=== PATIENT | female | born 1955 | race Caucasian/White ===

== ENCOUNTER 2020-03-11 09:00 | Outpatient (RCR) | payer MEDICARE, SELFPAY ==
--- NOTE | 2020-01-22 10:09 | PTOPEVAL ---
PHYSICAL THERAPY EVALUATION AND PLAN OF CARE Thank you for referring Dilma Ruiz to [facility]. I recommend Dilma participate in physical therapy 1-2x/week for 3-4 weeks. Please review, sign, date and return this plan of care LOLIS. I agree with and certify that the following plan of care is medically necessary. Referring Physician Date Evaluation Outpatient Past Medical History Neurological History Hx Multiple Sclerosis Yes Other History Hx Cancer Yes: colon cancer Evaluation Information Problem Diagnosis left hip trochanteric bursitis Onset 5 weeks ago Subjective Information Dilma is here today 5 weeks Query Text:As Reported By Patient/ after initial injury of left Family hip. While walking/running she experienced an pain in the left hip while on asphalt. She has been taking ibuprofen for a week, icing 3x/day, doing ITB stretches, pigeon pose, piriformis stretch. She reports the last several days have been better. She reports that she generally has tight ITB and has generally tight LE muscles because she has spasticity in LE. She has been trying to slow down her walking and avoiding running for now. Feels the best getting out of bed in the morning, but if sits too long during the day it will stiffen up. Pain Assessment Timing of Pain Assessment Timing of Pain Assessment Assessment Pain Scale Pain Scale Used Numeric (1 - 10) Self Report Pain Assessment Left Hip(s) Reported Pain Level 3 Pain Description Tightness Pain Frequency Acute,Intermittent Lowest Pain Intensity 3 Greatest Pain Intensity 7 Pain Aggravating Factors Stair Climbing,Walking Pain Score Pain Score 3: Self Report Lower Extremity Range of Motion General Lower Extremity Range of Motion Reason Not Measured WFL/Left,WFL/Right Lower Extremity Muscle Strength Testing Hip Strength Right Hip Flexion Strength 5 Normal Hip Extension Strength 4- Good - Hip Abduction Strength 5 Normal Left Hip Flexion Strength 5 Normal Hip Extension Strength 3+ Fair + Hip Abduction Strength 4- Good - Knee Strength Left Knee Flexion Strength
--- NOTE | 2020-03-11 09:25 | PTOPEVAL ---
PHYSICAL THERAPY DISCHARGE NOTE Thank you for referring Dilma Ruiz to [facility]. Please review, sign, date and return this plan of care LOLIS. I agree with and certify that the following plan of care is medically necessary. Referring Physician Date Discharge Diagnosis left hip trochanteric bursitis Onset 5 weeks ago Subjective Information Dilma is participating in physical therapy for left hip pain. She reports no episodes of pain in the last two weeks. Continues with HEP. Pain Score 0: Self Report General Lower Extremity Range of Motion: WFL/Left,WFL/Right Hip Strength Right Hip Flexion Strength 5 Normal Hip Extension Strength 4+ Good + Hip Abduction Strength 5 Normal Left Hip Flexion Strength 5 Normal Hip Extension Strength 4+ Good + Hip Abduction Strength 5 Normal Knee Strength Left Knee Flexion Strength 5 Normal Knee Extension Strength 5 Normal Knee Strength Comments SLS [id number] each side without LOB Gait Assessment: normal/no deviations PT Clinical Summary Dilma is here for a two week check up after her last visit. She presents today with no new onset of pain in left hip and continues to demonstrate WNL LE ROM and strength. She also demonstrates normal gait pattern and WFL balance. I recommend discharge from PT at this time. PT Services Indicated No Rehabilitation Potential Good Potential Barriers to Goal Achievements None Support Requirements For Optimal None [place]
== END 2020-03-12 14:14 | disposition home or self-care (01) ==
LOC: ANHPT 09:00
DX: M70.62 Trochanteric bursitis, left hip (principal)
CPT/HCPCS: 97110; 97140; 97161

== ENCOUNTER 2020-07-21 15:00 | Outpatient (RCR) | payer MEDICARE, SELFPAY ==
--- NOTE | 2020-07-02 09:23 | PTOPEVAL ---
PHYSICAL THERAPY EVALUATION AND PLAN OF CARE Thank you for referring Dilma Ruiz to [facility].? The patient is scheduled to be seen for therapy? 1x/week for 4-6 weeks. Please review, sign, date and return this plan of care LOLIS. I agree with and certify that the following plan of care is medically necessary. Referring Physician Date Evaluation Outpatient Past Medical History Neurological History Hx Multiple Sclerosis Yes Other History Hx Cancer Yes: colon cancer Diagnosis right sided low back pain Onset 3 weeks ago Subjective Information Dilma is here today because Query Text:As Reported By Patient/ she has been experiencing what Family she is calling sciatic nerve pain on the right. At first it would feel better when she would work out with her lead trainer, but it would on take long for symptoms to increase. She has strated to take 600mg ibuprofen 3x/day and using heat 3x/day, which seems to help some. Continues to walk 2-3miles at a time, which does not seem to explicitly increase symptoms. History of MS that causes her to have really tight muscles in her legs inlcuding ITB and calves. Self Report Pain Assessment Right Buttock(s) Reported Pain Level 4 Pain Description Sharp Lowest Pain Intensity 1 Greatest Pain Intensity 7 Lumbar ROM Lumbar Flexion (0-90) 55 Query Text:Active in Degrees Lumbar Extension (0-40) 15 Query Text:Active in Degrees Lateral Rotation Right (0-45) 40 Query Text:Active in Degrees Lateral Rotation Left (0-45) 25 Query Text:Active in Degrees General Lower Extremity Range of Motion Gross Lower Extremity Range of Motion hip extension in prone: right Comments hip extension limited compared to left, but patient reports left feels heavier Lumbar Strength Upper Abdominal Strength 3 Fair Lower Abdominal Strength 3+Fair+ Hip Strength Left Hip Flexion Strength 4+ Good + Hip Extension Strength 4 Good Hip Abduction Strength 4+ Good + Hip Medial Rotation Strength 4 Good Hip Lateral Rotation Strength 5 Normal Right Hip Flexion Strength 4+ Good + Hip Extension Strength
--- NOTE | 2020-07-21 15:44 | PTOPEVAL ---
PHYSICAL THERAPY DISCHARGE NOTE Thank you for referring Dilma Ruiz to [facility].? Please review, sign, date and return this plan of care LOLIS. I agree with and certify that the following plan of care is medically necessary. Referring Physician Date DISCHARGE Neurological History Hx Multiple Sclerosis Yes Other History Hx Cancer Yes: colon cancer Diagnosis right sided low back pain Onset 6 weeks ago Subjective Information Dilma reports she has been Query Text:As Reported By Patient/ doing very well. States her Family back was hurting over the weekend from being up too much but that the sciatic nerve symptoms did not return. Self Report Pain Assessment Right Buttock(s) Reported Pain Level 2 Pain Description Sharp Lowest Pain Intensity 1 Greatest Pain Intensity 7 Pain Score Pain Score 2: Self Report Interventions Used Interventions Used By Clinicians Exercise Cervical and Lumbar ROM Lumbar ROM Lumbar Flexion (0-90) 60 Query Text:Active in Degrees Lumbar Extension (0-40) 25 Query Text:Active in Degrees Lateral Rotation Right (0-45) 40 Query Text:Active in Degrees Lateral Rotation Left (0-45) 40 Query Text:Active in Degrees Lower Extremity Range of Motion General Lower Extremity Range of Motion Gross Lower Extremity Range of Motion hip extension in prone: Comments bilateral hip extension symmetrical and normal Lower Extremity Muscle Strength Testing Hip Strength Left Hip Flexion Strength 5 Normal Hip Extension Strength 4+ Good + Hip Abduction Strength 5 Normal Hip Medial Rotation Strength 5 Normal Hip Lateral Rotation Strength 5 Normal Right Hip Flexion Strength 5 Normal Hip Extension Strength 4 Good Hip Abduction Strength 5 Normal Hip Medial Rotation Strength 5 Normal Hip Lateral Rotation Strength 5 Normal PT Clinical Summary Dilma is a 65 yo female presenting to outpatient physical therapy with c/o right sided sciatic pain. Dilma reports no symptoms today other than some residual soreness in her back from the weekend's activities. She presents with normal and symmetrical strength and normal. She is consistent and compliant w
== END 2020-07-22 11:22 | disposition home or self-care (01) ==
LOC: ANHPT 15:00
DX: M54.31 Sciatica, right side (principal)
CPT/HCPCS: 97110; 97140; 97161

== ENCOUNTER 2021-01-14 10:15 | Outpatient (RCR) | payer MEDICARE, SELFPAY ==
[2020-10-21 07:34] VITALS: BP_SYST 130
--- NOTE | 2020-10-21 08:47 | PTOPEVAL ---
PHYSICAL THERAPY EVALUATION AND PLAN OF CARE Thank you for referring Dilma Ruiz to [facility].? The patient is scheduled to be seen for therapy? 2x/week for 4 weeks. Please review, sign, date and return this plan of care LOLIS. I agree with and certify that the following plan of care is medically necessary. Referring Physician Date Evaluation Outpatient Past Medical History Neurological History Hx Multiple Sclerosis Yes Other History Hx Cancer Yes: colon cancer Diagnosis left clavicle fracture Onset 08/24/20 Subjective Information Was playing with her grandsons Query Text:As Reported By Patient/ and she fell on the Family playground and fractures the left clavicle. She also c/o pain in the left scapula and left side of her back below the scapula. Symptoms are a lot less than they were, but going for walks can increase symptoms. Left arm was in a sling for a few weeks. She has been allowed to d/c the sling. States that the left arm hurts even while resting and she feels electrical shocks through the arm at times. She describes decreased mobility of the left arm. She reports that even turning her head is more difficult. Also describes a new onset of some dizziness when first getting out of bed and sometimes feeling unsteady, although she is feeling more steady. Self Report Pain Assessment Left Shoulder(s) Reported Pain Level 3 Pain Description Aching,Soreness Pain Frequency Acute,Intermittent Lowest Pain Intensity 1 Greatest Pain Intensity 6 Pain Aggravating Factors Exercise/Activity Other Pain Aggravating Factors raising arms overhead Pain Behaviors None Pain Score Pain Score 3: Self Report Interventions Used Interventions Used By Clinicians Exercise,Manual Therapy Techniques Pain Relief Interventions Used By Ice,Inactivity/Rest Patient Cervical and Lumbar ROM Cervical ROM Cervical Rotation Right (0-90) 64 Query Text:Active in Degrees Cervical Rotation Left (0-90) 51
--- NOTE | 2020-11-12 13:43 | PTOPEVAL ---
PHYSICAL THERAPY PROGRESS NOTE AND PLAN OF CARE UPDATE Thank you for referring Dilma Ruiz to [facility].? The patient is scheduled to be seen for therapy? 2x/week for 4 weeks. Please review, sign, date and return this plan of care LOLIS. I agree with and certify that the following plan of care is medically necessary. Referring Physician Date Progress Diagnosis left clavicle fracture Onset 08/24/20 Subjective Information Reports that left arm symptoms Query Text:As Reported By Patient/ are reducing steadily but Family continue to interfere with function (washing dishes, grooming, doing hair). Continues to report a significant amount of her symptoms in the left scapular region and ribs region. Continues to dizziness when first getting out of bed and sometimes feeling unsteady that is all new since the fall Self Report Pain Assessment Left Shoulder(s) Reported Pain Level 3 Pain Description Aching,Soreness Pain Frequency Acute,Intermittent Pain Aggravating Factors Exercise/Activity Other Pain Aggravating Factors raising arms overhead Pain Behaviors None Pain Score Pain Score 3: Self Report Interventions Used Interventions Used By Clinicians Exercise,Heat,Manual Therapy Techniques Pain Relief Interventions Used By Exercise,Ice,Inactivity/Rest Patient Upper Extremity Range of Motion Scapular/ Shoulder Range of Motion Left Shoulder Flexion - Active 160 Shoulder Abduction - Active 150 Shoulder Medial Rotation - Active T5 Query Text:Reach Behind the Back Shoulder Lateral Rotation - Active T1 Query Text:Reach Behind the Head Scapular/Shoulder Range of Motion left behind the back: T5, left Comments behind the head: T5 Upper Extremity Muscle Strength Testing Scapular/Shoulder Left Shoulder Flexion Strength 3+ Fair + Shoulder Abduction Strength 3+ Fair + Shoulder Medial Rotation Strength 4- Good - Shoulder Lateral Rotation Strength 4- Good - Shoulder Strength Comments significant soreness noted with MMT Elbow/Forearm Left Elbow Flexion Strength 4+ Good + Elbow Extension Strength 4+ Good + Palpation decreased mobility of left posterior ribs; decreased mobility of thoracic spine; mild tenderness to palpate
--- NOTE | 2020-11-17 09:07 | PCPTNOTE ---
Patient called & cancelled scheduled appointment this date due to bad weather.
--- NOTE | 2020-12-10 11:14 | PTOPEVAL ---
PHYSICAL THERAPY RE-EVALUATION and UPDATED PLAN OF CARE Thank you for referring Dilma Ruiz to [facility].? Dilma is scheduled to continue in physical therapy? 2x/week for 4 weeks. Please review, sign, date and return this plan of care LOLIS. Dilma has made strength and functionals goals, but still having increased L upper quadrant pain and tightness which she feels is limiting her return to normal function. I agree with and certify that the following plan of care is medically necessary. Referring Physician Date Admitting Provider: Attending Provider: Dilip Nicole MD Referring Provider: Therapy Assessment Status Assessment Status Assessment Status Re-evaluation Evaluation Information Problem Diagnosis left clavicle fracture Subjective Information Dilma reports that IADLs - Query Text:As Reported By Patient/ overhead with hair are still Family difficult. Exercises involving L shoulder abduction are difficult. 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 Things still feeling tight. Some increase ease turning head/trunk for backing up car. Doing dishes at night will result in some discomfort. Does better with walking on treadmill than on ground. Able to go bike riding with [employer] last weekend. Pain Assessment Self Report Pain Assessment Left Shoulder(s) Reported Pain Level 3 Pain Description Aching,Dull,Sharp,Soreness Lowest Pain Intensity 2 Greatest Pain Intensity 5 Cervical and Lumbar ROM Cervical ROM Cervical Rotation Right (0-90) 58 Query Text:Active in Degrees Cervical Rotation Left (0-90) 62 Query Text:Active in Degrees Cervical ROM Comments thoracic rotation - R ~ 50 deg L ~ 40 deg - tightness at end range Upper Extremity Range of Motion Scapular/ Shoulder Range of Motion Left Shoulder Flexion - Active 160 Shoulder Extension - Active 72 Shoulder Abduction - Active 150 Shoulder Medial Rotation - Active T5 Query Text:Reach Behind the Back Shoulder Lateral Rotation - Active T3 Query Text:Reach Behind the Head Scapular/Shoulder Range of Motion neutral ER - 86 Comments Upper Extremity Muscle Strength Testing Scapular/Shoulder Left Shoulder Flexion Strength 4 Good Shoulder Extension Strength 5 Normal Shoulder Abduction Strength 4+ Good + Shoulder Medial Rotation Strength
--- NOTE | 2021-01-07 10:24 | PTOPEVAL ---
PHYSICAL THERAPY RE-EVALUATION and UPDATED PLAN OF CARE Thank you for referring Dilma Ruiz to [facility].? Dilma has been seen x 23 visits in PT. She continues to have c/o's of L side back and arm pain, but has regained L g-h jt ROM and strength. Dysfunction still remains with cervical and thoracic spine as well as increased soft tissue tension. She is scheduled to continue with PT 2x/week for 4 weeks. Please review, sign, date and return this plan of care LOLIS. I agree with and certify that the following plan of care is medically necessary. Referring Physician Date Admitting Provider: Attending Provider: SOL Edwards Referring Provider: Therapy Assessment Status Assessment Status Assessment Status Re-evaluation Evaluation Information Problem Diagnosis left clavicle fracture Onset 08/24/20 Subjective Information Dilma reports that pain is ~ Query Text:As Reported By Patient/ 30% improved. She is still Family uncomfortable with walking- limited with distance due to pain. Bike riding is better - but will still have discomfort that will limit her distance. She feels that she is stronger - but discomfort in L arm and back are limiting her return to previous activity levels. Pain Assessment Timing of Pain Assessment Timing of Pain Assessment Assessment Pain Scale Pain Scale Used Numeric (1 - 10) Self Report Pain Assessment Left Shoulder(s) Reported Pain Level 3 Pain Description Soreness,Stabbing Lowest Pain Intensity 2 Greatest Pain Intensity 5 Pain Score Pain Score 3: Self Report Interventions Used Interventions Used By Clinicians Manual Therapy Techniques Cervical and Lumbar ROM Cervical ROM Cervical Rotation Right (0-90) 62 Query Text:Active in Degrees Cervical Rotation Left (0-90) 52 Query Text:Active in Degrees Upper Extremity Range of Motion Scapular/ Shoulder Range of Motion Left Shoulder Flexion - Active 162 Shoulder Extension - Active 61 Shoulder Abduction - Active 163 Shoulder Medial Rotation - Active 90 Shoulder Lateral Rotation - Active 75 Scapular/Shoulder Range of Motion ER in neutral - 85 end range Comments pain end range pain with ER in supine after joint mobilization - ER 85 deg Upper Extremity Muscle Strength Testing Scapular/Shoulder Left Shoulder Flexion Strength 5 Normal Shoulder Extension Strength 5 Normal Shoulder Abduction Strength 4+ Good +
--- NOTE | 2021-01-14 17:28 | PCPTNOTE ---
This treatment is being continued on visit number [id number]. Please see documentation on both accounts to view progress. Completed interventions, outcomes, and problems have been marked as Inactive to facilitate the copying of the Care plan routine for recurring accounts.
== END 2021-01-14 14:16 | disposition home or self-care (01) ==
LOC: ANHPT 10:15
DX: S42.025D Nondisplaced fracture of shaft of left clavicle, subsequent encounter for fracture with routine healing (principal)
CPT/HCPCS: 97110; 97140; 97162

== ENCOUNTER 2021-03-30 09:00 | Outpatient (RCR) | payer MEDICARE, SELFPAY ==
[2021-01-14 14:16] VITALS: BP_SYST 130
--- NOTE | 2021-01-14 17:29 | PCPTNOTE ---
The treatment documented on this account is a continuation of the treatment documented on visit number [id number]. Please see documentation on both accounts to view progress. The Plan of Care has been transitioned and updated within the new V#. I have addressed and agree with the discipline specific Problems, Interventions, and Goals for the current certification period. Completed interventions, outcomes, and problems have been marked as Inactive to facilitate the copying of the Care plan routine for recurring accounts.
--- NOTE | 2021-01-28 16:50 | PTOPEVAL ---
PHYSICAL THERAPY RE-EVALUATION and UPDATED PLAN OF CARE Thank you for referring Dilma Ruiz to [facility].? Dilma continues to make strength and ROM gains, but pain continues to persist in the L scapular region and she is still limited with walking in the neighborhood, riding bikes with grandsons, and gardening. She will benefit from continued skilled PT 1x/week for 4 weeks. Please review, sign, date and return this plan of care LOLIS. I agree with and certify that the following plan of care is medically necessary. Referring Physician Date Admitting Provider: Attending Provider: SOL Edwards Referring Provider: Therapy Assessment Status Assessment Status Assessment Status Re-evaluation Evaluation Information Problem Diagnosis left clavicle fracture Subjective Information When asked, Sandrine stated that Query Text:As Reported By Patient/ she can last ~ 30 minutes Family with walking before L scapular pain increased to 3-6/10 level and she needs to stop. For bike riding - can go longer ~ 45 min before the L scapular pain occurs and she needs to stop the activity. Gardening is at 50% level from prior to L clavicular fracture - again limited by L scapular pain. Pain Assessment Self Report Pain Assessment Left Shoulder(s) Reported Pain Level 2 Pain Description Sharp,Soreness,Stabbing Other Pain Description knife like when pain gets higher Lowest Pain Intensity 1 Greatest Pain Intensity 6 Cervical and Lumbar ROM Cervical ROM Cervical Rotation Right (0-90) 60 Query Text:Active in Degrees Cervical Rotation Left (0-90) 48 Query Text:Active in Degrees Cervical ROM Comments Sandrine reports that she had L cervical rotation restriction with motion prior to L clavicular fracture After manual therapy - symmetrical active and passive cervical rotation Upper Extremity Range of Motion General Upper Extremity Range of Motion Gross Upper Extremity Range of Motion Bilateral shoulder flexion and Comments abduction - overall motion - symmetrical - however decreased L humeral head inferior glide present at end range, increase with L scapular upward rotation at end range of L g-h jt
--- NOTE | 2021-03-02 16:53 | PTOPEVAL ---
PHYSICAL THERAPY RE-EVALUATION and UPDATED PLAN OF CARE Thank you for referring Dilma Ruiz to [facility].? Dilma continues to make gains with functional activities, but she continues to experience L thoracic discomfort with the increase in activity level. She will continue to benefit from continuation of skilled PT 1x/week for 4 weeks. Please review, sign, date and return this plan of care LOLIS. I agree with and certify that the following plan of care is medically necessary. Referring Physician Date Admitting Provider: Attending Provider: SOL Edwards Referring Provider: Therapy Assessment Status Assessment Status Assessment Status Re-evaluation Evaluation Information Problem Diagnosis left clavicle fracture Subjective Information Dilma reports that she went Query Text:As Reported By Patient/ shopping - 3-4 hours - Family increase in L shoulder pain. Doing more regular walking - usually around 30 min - at 3.2 mile pace. Gardening on Monday - some back discomfort started - then went to L shoulder. Doing stretching - does help the stiffness. Doing foam roller as well as ice/heat as needed. Pain Assessment Timing of Pain Assessment Timing of Pain Assessment Assessment Pain Scale Pain Scale Used Numeric (1 - 10) Self Report Pain Assessment Left Shoulder(s) Reported Pain Level 3 Other Pain Description stiffness Lowest Pain Intensity 0 Greatest Pain Intensity 4 Pain Score Pain Score 3: Self Report Interventions Used Interventions Used By Clinicians Manual Therapy Techniques Cervical and Lumbar ROM Cervical ROM Cervical Rotation Right (0-90) 60 Query Text:Active in Degrees Cervical Rotation Left (0-90) 52 Query Text:Active in Degrees Cervical ROM Comments Dilma reports that there is something preventing her from going further to the L. She also reports that she has never has full motion to the L as compared to the R. After soft tissue mob - 68 deg rotation to L Palpation Assessment Palpation Palpation T9-6 rotated L, P-A mob T7 restricted but discomfort present T7-3, decreased mobility into R rotation, increase in tissue tension thoracic paraspinal muscles T4
--- NOTE | 2021-03-23 09:39 | PCPTNOTE ---
Patient called & cancelled scheduled appointment this date due to having eye problem.
--- NOTE | 2021-03-30 17:10 | PTOPEVAL ---
PHYSICAL THERAPY DISCHARGE SUMMARY Thank you for referring Dilma Ruiz to [facility] Dilma has been seen in PT x 37 visits. She has met most goals set, doing well with HEP and upgrading of functional activity level. I agree with Dilma's discharge from PT. Referring Physician Date Admitting Provider: Attending Provider: SOL Edwards Referring Provider: Therapy Assessment Status Assessment Status Assessment Status Discharge Evaluation Information Problem Diagnosis left clavicle fracture Subjective Information Dilma reported that she did Query Text:As Reported By Patient/ end up driving some to [place] - Family increase in L upper quadrant soreness afterwards. 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 Able to ride bike x 7 miles without increase in discomfort. Able to walk 2-3 miles on a regular basis now - some soreness afterwards. Doing HEP, working out with animal trainer supervisor, using foam roller, etc. Pain Assessment Timing of Pain Assessment Timing of Pain Assessment Assessment Pain Scale Pain Scale Used Numeric (1 - 10) Self Report Pain Assessment Left Shoulder(s) Reported Pain Level 2 Other Pain Description stiffness and tightness present Lowest Pain Intensity 0 Greatest Pain Intensity 4 Pain Score Pain Score 2: Self Report Cervical and Lumbar ROM Cervical ROM Cervical Rotation Right (0-90) 60 Query Text:Active in Degrees Cervical Rotation Left (0-90) 60 Query Text:Active in Degrees Upper Extremity Range of Motion General Upper Extremity Range of Motion Gross Upper Extremity Range of Motion Symmetrical scapulo humeral Comments rhythm with flexion and abduction - very mild decrease with humeral depression at end range L abduction Palpation Assessment Palpation Palpation Very mild decrease in passive thoracic rotation R as compared to L. Fair P-A motion T9-3 - some discomfort at T9,8 L Scapular distraction - mild decrease with distraction at base of spine of scapula - at insertion of levator scapulae
== END 2021-04-06 14:08 | disposition home or self-care (01) ==
LOC: ANHPT 09:00
DX: S42.025D Nondisplaced fracture of shaft of left clavicle, subsequent encounter for fracture with routine healing (principal)
CPT/HCPCS: 97110; 97116; 97140; 97530

== ENCOUNTER 2022-05-31 08:02 | Outpatient (RCR) | payer MEDICARE, SELFPAY ==
--- NOTE | 2022-05-31 09:10 | PTOPEVAL1 ---
Evaluation Information Assessment Status Evaluation Diagnosis R knee and hip pain Subjective Information Pt states 4 wks ago she was running/sprinting on uneven surfaces. A day or two after this her R leg started to hurt, she is unsure if it is causes by her hip or knee. She reports pain at the lateral aspect of her R knee and lateral aspect of the R hip. She states occasionally her L side with hurt d/t compensations. She was given an anti- inflammatory a week ago so she does not have any pain currently. She is still able to hike but this is more pain than she usually has. Reported Pain Level Pain Score 0,0: Self Report Assessment PT Clinical Summary Dilma is an active 67 y/o female who presents to therapy today for her initial evaluation today with a diagnosis of R hip and knee pain. Today she reports no pain since starting her prescription anti-inflammatory. Upon evaluation, Dilma demonstrates excellent LE strength and LE ROM what is WNL. Her strength is equal branden, and pain was not reproduced throughout evaluation. She demonstrates no deviations during gait, but does demonstrate minor eccentric control when descending stairs. She was instructed in a HEP this date and was educated to complete this daily at home. She was scheduled for a follow up appointment if needed, if she is still doing well with no pain and no limitations she will be discharged at this time. Plan of Care Interventions Therapeutic Activities,Therapeutic Exercise PT Services Indicated No Treatment Frequency and follow up in one month, if needed Duration These treatments will address the objective and functional deficits as defined above. The patient will be advanced safely and appropriately in order for the patient to progress towards his/her prior level of function. Additional exercises will be introduced and as well as a comprehensive home exercise program upon discharge, if needed, ?to ensure carryover of functional gains achieved in the clinic. This treatment plan has been reviewed and agreement upon by the patient.
--- NOTE | 2022-06-15 15:13 | PTOPDC ---
Assessment and note entered by Perla Moran, PT, DPT Evaluation Information Assessment Status Discharge - Pt Not Presen Diagnosis R knee and hip pain Subjective Information Pt called today to cancel her re-evaluation. Per report, pt states she is doing great, with no pain , and does not feel the need to return to therapy. Assessment PT Clinical Summary Dilma completed her initial evaluation on 05/31/22 and has been participating in a HEP since. She reports no need for therapy and will therefore be discharged at this time.
== END 2022-06-20 10:36 | disposition home or self-care (01) ==
LOC: ANHPT 08:02
DX: M25.551 Pain in right hip (principal); M25.561 Pain in right knee
CPT/HCPCS: 97110; 97161

== ENCOUNTER 2022-10-10 10:30 | Outpatient (RCR) | payer MEDICARE, SELFPAY ==
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
--- NOTE | 2022-08-18 14:32 | PCPTNOTE ---
pt did not show for today's reeval, called and left her a voice mail message about missed appt;
--- NOTE | 2022-08-22 10:46 | PTOPPROG ---
Assessment and note entered by Beverly Ross, PT Evaluation Information Assessment Status Progress Diagnosis R hip and R knee pain Onset April 2022 Subjective Information Dilma reports: things are better; getting stronger with standing on one leg; some of the exercises, need to get better with strength and coordination; when go up/down stairs alot, have pain; doing all the exercises at home; PAIN: range of 0-6/10, R lateral knee and thigh and into lateral hip at times; tight and sometimes a little painful; walking tolerance of 20-30 minutes; decrease pain with resting; do not take any pain meds for leg, but take med for her neck pain; have not used heat or ice over leg; Assessment PT Clinical Summary Dilma has received 6 PT sessions. Compared to the initial evaluation: pain rating at the low rating is the same at 0/10 and the high rating increased from 5 to 6/10; reported walking tolerance is less, was 30-60 min and now 30 minutes when pain increases; strength has increased in R hip and knee; increase flexibility of R piriformis; 12 steps do not increase her pain; She has been educated on HEP and self management of pain. The goals were partially achieved. Continue skilled PT treatments to further increase strength of R LE, progression of HEP and modalities PRN for pain control. Plan of Care Interventions Electrical Stimulation,Hot Pack/Cold Pack,Manual Therapy,Neuro Re-education,Patient/Caregiver Education,Therapeutic Activities,Therapeutic Exercise,Ultrasound,Other Other Interventions taping PT Services Indicated Yes Treatment Frequency and 1x/wk for 4 weeks Duration These treatments will address the objective and functional deficits as defined above. The patient will be advanced safely and appropriately in order for the patient to progress towards his/her prior level of function. Additional exercises will be introduced and as well as a comprehensive home exercise program upon discharge, if needed, ?to ensure carryover of functional gains achieved in the clinic. This treatment plan has been reviewed and agreement upon by the patient.
--- NOTE | 2022-09-19 10:46 | PCPTNOTE ---
pt called 09-16-22 and canceled her reeval due to being ill. She will be out of town for the holidays and not available; Reeval was rescheduled for Oct 10.
--- NOTE | 2022-10-10 11:01 | PTOPDC ---
Assessment and note entered by Beverly Ross, PT Evaluation Information Assessment Status Progress Diagnosis R hip and R knee pain Onset April 2022 Subjective Information Dilma reports: is getting over being ill, returned to doing her exercises about 10 days ago; is still working with her lion trainer--leg exercises and fitness activities; walked over the weekend about 70 minutes, was sore afterwards, but it was OK; pain: range of pain in past week 0-6/10; increase pain with walking too much; pain L>R- buttocks, lateral thighs---sharp in buttocks, dull pain in ITBs; decrease pain with rest and ice; Reported Pain Level Pain Score Self Report 0-6/10 Assessment PT Clinical Summary Dilma has received a total of 10 PT sessions, from July 27 to today. She did not show for one and called/canceled 2 appointments due to being ill. Compared to the last reeval: reported pain is the same 0-6/10; increased strength with mat hip exercises; single leg standing is decreased with less time; continues to have pain with R hip flexion, hip IR and piriformis stretching--over anterior hip; Less tenderness and spasms over R ITB with palpation. Dilma has been educated on a home exercise program. Reinforced with her pain management techniques of heat/ice, stretching and self massage over ITB, using foam roller or hand held massage gun; balance of activity/rest. She is motivated and has been doing her HEP and working with a lion trainer. Also discussed with her, if pain continues, to return to her general dr or ortho dr that she has seen in the past. The goals were partially achieved. Discharge PT services. Plan of Care PT Services Indicated No
== END 2022-10-10 11:40 | disposition home or self-care (01) ==
LOC: ANHPT 10:30
PROVIDERS: PCP Internal Medicine; Visit Provider Internal Medicine
DX: M25.551 Pain in right hip (principal); M25.561 Pain in right knee
CPT/HCPCS: 97110; 97112; 97161; 97530